=== PATIENT | female | born 2000 | race African-American/Black ===

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

== ENCOUNTER 2021-10-12 18:47 | Inpatient (IN) | payer BC, OTHER ==
[~2021-10-12 18:47] MED LIST: Bupivacaine/Epinephrine 0.25% 30 ML VIAL ONE; ePHEDrine Sulfate 50 MG/10 ML VIAL ONE
[2021-10-12] MEDS ORDERED: HYDROcodone/Acetaminophen 5/325 mg Tablet PO PRN ×2 (19:11)
[2021-10-12] MEDS ORDERED: Ibuprofen 800 MG TAB PO PRN (19:11)
[2021-10-12] MEDS ORDERED: Methylergonovine 0.2 MG/ML VIAL IM PRN (19:11)
[2021-10-12] MEDS ORDERED: Ondansetron PF 4 MG/2 ML Vial IVP PRN (19:11)
[2021-10-12] MEDS ORDERED: Lidocaine 1% (PF) 30 ML VIAL SC PRN (19:11)
[2021-10-12] MEDS ORDERED: Promethazine HCl 25 MG/ML VIAL IM PRN (19:11)
[2021-10-12] MEDS ORDERED: Carboprost 250 MCG/ML AMP IM PRN (19:11)
[2021-10-12] MEDS ORDERED: Acetaminophen 500 MG TAB PO PRN (19:11)
[2021-10-12] MEDS ORDERED: Misoprostol 200 MCG TAB PR PRN (19:11)
[2021-10-12] MEDS ORDERED: Diphenoxylate HCl/Atropine Tablet PO PRN (19:11)
[2021-10-12] MEDS ORDERED: Penicillin G Potassium 5 MILL.UNITS in Sodium Chloride 0.9% 100 ML IVPB SCH (19:15)
[2021-10-12] MEDS ORDERED: NS w/ Oxytocin 30 units 500 ML IV SCH ×2 (19:15)
[2021-10-12] MEDS ORDERED: Calcium Gluc 4.6 MEQ/10 ML (100 MG/ML) SLOW IVP PRN (19:21)
[2021-10-12] MEDS ORDERED: Magnesium Sulfate 20 GM/WATER 500 ML BAG IVPB SCH (19:30)
[2021-10-12] MEDS: hydrALAZINE 20 MG/ML VIAL SLOW IVP PRN ×2 (19:40→20:05)
[2021-10-12 20:05] LABS: Hemoglobin 10.1 g/dL (12.0-15.5); Mean Corpuscular HGB CONC 31.9 g/dL (32.0-36.0); Mean Corpuscular Hemoglobin 25.1 pg (27.0-33.0); Mean Corpuscular Volume 78.7 fl (81.6-98.3); Mean Platelet Volume 11.4 fl (7.4-10.4); Platelet Count 275 10x3/uL (150-450); RBC Distribution Width 14.7 % (11.5-14.5); Red Blood Cell (RBC) Count 4.03 10x6/uL (3.90-5.03); White Blood Cell (WBC) Count 10.5 10x3/uL (3.5-10.5)
[2021-10-12] MEDS: Magnesium Sulfate 20 gm/500 ml 20 GM/500 ML BAG IVPB SCH (20:19)
[2021-10-12 20:26] LABS: ALT (SGPT) 12 U/L (8-55); AST (SGOT) 17 U/L (5-34); Albumin 3.5 g/dL (3.5-5.0); Alkaline Phosphatase 242 U/L (40-100); Anion Gap 16 mmol/L (10-20); BUN (Urea Nitrogen) 6 mg/dL (7.0-18.7); Bilirubin, Total 0.2 mg/dL (0.2-1.2); Calc. Creatinine Clearance 0 mL/min (70-130); Calcium 9.1 mg/dL (7.8-10.44); Carbon Dioxide 20 mmol/L (22-29); Chloride 107 mmol/L (98-107); Globulin 3.3 g/dL (2.4-3.5); Glucose 63 mg/dL (70-105); Protein, Total 6.8 g/dL (6.0-8.3); Sodium 139 mmol/L (136-145); Uric Acid 4.6 mg/dL (2.6-6.0)
[2021-10-12] MEDS ORDERED: Labetalol HCl 100 MG/20 ML VIAL ONE (20:29)
[2021-10-12 20:31] LABS: Hep B Surf Ag Non-Reactive S/CO (NonReactive); Syphilis Antibody Nonreactive (Nonreactive); Syphilis Antibody Index 0.06 S/CO (<1.00 Non-Reactive)
[2021-10-12 20:41] LABS: HBSAg Index 0.17 S/CO (0-0.99)
[2021-10-12] MEDS: Misoprostol 100 MCG TAB VAG SCH (21:18)
[2021-10-12 21:38] VITALS: BMI 28.8
[2021-10-13] MEDS: Misoprostol 100 MCG TAB VAG SCH ×4 (00:40→23:20)
[2021-10-13] MEDS: Magnesium Sulfate 20 gm/500 ml 20 GM/500 ML BAG IVPB SCH ×3 (03:14→22:59)
[2021-10-13] MEDS: Penicillin G 2.5 MILL.units 2.5 MILL.UNITS in Premix Bag 1 BAG IVPB SCH ×5 (03:14→23:21)
[2021-10-13] MEDS: Labetalol HCl 100 MG/20 ML VIAL SLOW IVP PRN ×2 (08:08→13:56)
[2021-10-13] MEDS ORDERED: Iopamidol 370 76% 100 ML VIAL ONE (13:12)
[2021-10-13] MEDS: Butorphanol Tartrate 1 MG/ML VIAL SLOW IVP PRN ×2 (13:50→15:19)
[2021-10-13] MEDS ORDERED: Labetalol HCl 100 MG/20 ML VIAL SLOW IVP SCH ×2 (15:45→16:00)
[2021-10-13] MEDS ORDERED: Fentanyl 2 mcg/Bup 0.1% Cadd 100 ML ONE (16:50)
[2021-10-13] MEDS ORDERED: PHENYLEPHRINE-NS 100 MCG/ML 10 ML SYRINGE ONE (18:02)
[2021-10-13] MEDS ORDERED: Acetaminophen 325 MG TAB PO PRN (18:17)
[2021-10-13] MEDS ORDERED: diphenhydrAMINE 50 MG/ML VIAL IVP PRN (18:17)
[2021-10-13] MEDS ORDERED: Moisturizing Cream (Eucerin) 113 GM JAR TOP PRN ×2 (18:17→21:13)
[2021-10-13] MEDS ORDERED: Naloxone HCl 0.4 mg/ml Vial IVP PRN ×4 (18:17→21:13)
[2021-10-13] MEDS ORDERED: Promethazine HCl 25 MG/ML VIAL IM PRN ×2 (18:17→21:13)
[2021-10-13] MEDS ORDERED: Ondansetron PF 4 MG/2 ML Vial IVP PRN ×2 (18:17→21:13)
[2021-10-13] MEDS ORDERED: Lactated Ringer's 500 ML IV PRN (18:17)
[2021-10-13] MEDS ORDERED: ePHEDrine Sulfate 50 MG/10 ML VIAL SLOW IVP PRN (18:17)
[2021-10-13] MEDS ORDERED: Bicitra 30 ML UDCUP PO PRN (18:24)
[2021-10-13] MEDS ORDERED: Famotidine/PF 20 mg/2ml Vial SLOW IVP PRN (18:24)
[2021-10-13] MEDS ORDERED: Ondansetron PF 4 MG/2 ML Vial ONE (18:27)
[2021-10-13] MEDS ORDERED: Dexamethasone 4 mg/ml Vial ONE (18:27)
[2021-10-13] MEDS ORDERED: Morphine PF 10 MG/10 ML VIAL ONE (18:27)
[2021-10-13] MEDS ORDERED: Misoprostol 200 MCG TAB ONE (18:28)
[2021-10-13] MEDS ORDERED: Oxytocin 10 UNITS/ML VIAL ONE (18:28)
[2021-10-13] MEDS ORDERED: Tranexamic Acid 1,000 MG/10 ML VIAL ONE (18:29)
[2021-10-13] MEDS ORDERED: Carboprost 250 MCG/ML AMP ONE (18:29)
[2021-10-13] MEDS ORDERED: Communication Order-Pharmacy FS SCH ×2 (18:30→21:15)
[2021-10-13] MEDS ORDERED: ceFAZolin 2 GM/Dextrose 50 ML 2 GM in Premix Bag 1 BAG IVPB SCH (18:30)
[2021-10-13] MEDS ORDERED: Azithromycin 500 MG in Sodium Chloride 0.9% 250 ML 250 ML IVPB SCH (18:30)
[2021-10-13] MEDS ORDERED: Fentanyl 2 mcg/Bupivacaine 0.1% Cassette 100 ML EPIDURAL SCH (18:30)
[2021-10-13 18:41] LABS: Magnesium 6.4 mg/dL (1.7-2.2)
[2021-10-13] MEDS ORDERED: Boostrix 0.5 ML (Tdap) VIAL IM ONE (18:59)
[2021-10-13] MEDS ORDERED: Simethicone Chewable 80 MG TAB PO PRN (18:59)
[2021-10-13] MEDS ORDERED: hydrALAZINE 20 MG/ML VIAL SLOW IVP PRN (18:59)
[2021-10-13] MEDS ORDERED: Naloxone HCl 0.4 mg/ml Vial ONE (19:20)
[2021-10-13] MEDS ORDERED: Meperidine HCl/PF 25 MG/ML VIAL SLOW IVP PRN (21:13)
[2021-10-13] MEDS ORDERED: Ketorolac Tromethamine 30 MG/ML VIAL IVP PRN (21:13)
[2021-10-13] MEDS ORDERED: HYDROmorphone 2 MG/ML VIAL SLOW IVP PRN (21:13)
[2021-10-13] MEDS ORDERED: Naloxone HCl 0.4 mg/ml Vial IV PRN (21:13)
[2021-10-13] MEDS ORDERED: Fentanyl 100 MCG/2 ML VIAL SLOW IVP PRN (21:13)
[2021-10-13] MEDS ORDERED: Promethazine HCl 25 MG SUPP PR PRN (21:13)
[2021-10-13] MEDS ORDERED: Ondansetron HCl/PF 4 MG/2 ML Vial IVP PRN (21:13)
[2021-10-13] MEDS ORDERED: Ketorolac Tromethamine 30 MG/ML VIAL IVP SCH (21:15)
[2021-10-13] MEDS ORDERED: Ibuprofen 800 MG TAB PO SCH (22:00)
[2021-10-13] MEDS: CEFAZOLIN 1 GM in Sodium Chloride 0.9% 100 ML IVPB SCH (22:55)
[2021-10-13] MEDS: Lactated Ringer's 1,000 ML IV SCH (22:59)
[2021-10-13] MEDS: Ferrous Sulfate 325 MG TAB PO SCH (23:23)
[2021-10-13] MEDS: Docusate 100 MG CAP PO SCH (23:23)
[2021-10-13] MEDS ORDERED: HYDROmorphone 0.5 MG/0.5 ML SYRINGE SLOW IVP PRN (23:45)
[2021-10-14 04:56] LABS: #Monocytes 0.6 10x3/uL (0.0-1.1); #Neutrophils 13.2 10x3/uL (1.5-8.4); %Basophils 0.1 % (0.0-2.0); %Lymphocytes 4.5 % (18.0-47.0); %Monocytes 4.4 % (0.0-10.0); %Neutrophils 90.5 % (40.0-75.0); Mean Corpuscular HGB CONC 31.1 g/dL (32.0-36.0); Mean Corpuscular Hemoglobin 24.9 pg (27.0-33.0); Mean Corpuscular Volume 80.1 fl (81.6-98.3); Mean Platelet Volume 10.8 fl (7.4-10.4); Platelet Count 283 10x3/uL (150-450); RBC Distribution Width 15.3 % (11.5-14.5); Red Blood Cell (RBC) Count 4.02 10x6/uL (3.90-5.03); White Blood Cell (WBC) Count 14.6 10x3/uL (3.5-10.5)
[2021-10-14] MEDS: Magnesium Sulfate 20 gm/500 ml 20 GM/500 ML BAG IVPB SCH (07:45)
[2021-10-14] MEDS: CEFAZOLIN 1 GM in Sodium Chloride 0.9% 100 ML IVPB SCH (07:45)
[2021-10-14 10:07] LABS: Lactic Acid 1.7 mmol/L (0.5-2.2)
[2021-10-14 10:11] LABS: ALT (SGPT) 20 U/L (8-55); AST (SGOT) 26 U/L (5-34); Albumin 3.3 g/dL (3.5-5.0); Alkaline Phosphatase 221 U/L (40-100); Anion Gap 17 mmol/L (10-20); BUN (Urea Nitrogen) 8 mg/dL (7.0-18.7); Bilirubin, Total 0.2 mg/dL (0.2-1.2); Calc. Creatinine Clearance 134 mL/min (70-130); Carbon Dioxide 22 mmol/L (22-29); Chloride 103 mmol/L (98-107); Globulin 3.7 g/dL (2.4-3.5); Glucose 98 mg/dL (70-105); Magnesium 7.3 mg/dL (1.7-2.2); Potassium 5.4 mmol/L (3.5-5.1); Sodium 137 mmol/L (136-145)
[2021-10-14] MEDS ORDERED: Magnevist 469MG/ML 20 ML VIAL ONE (10:49)
[2021-10-14 11:24] LABS: ALV-art Gradient 8.595 mmHg (0-20); Actual Bicarbonate (HCO3a) 24.1 mEq/L (22-28); Base Excess (BEa) -1.9 mEq/L (-2.0 to +3.0); CO2 Tension 46.1 mmHg (35.0-45.0); Calcium, Ionized (arterial) 1.11 mmol/L (1.12-1.30); Critical Notified Whom: South; Hemoglobin (Hb) 10.6 g/dL (12.0-16.0); O2 Tension (PaO2), arterial 104.9 mmHg (80.0-100.0); Potassium - ABG Lab 5.1 mmol/L (3.70-5.30); Puncture Site LRA; pH, Arterial 7.34 (7.35-7.45)
[2021-10-14] MEDS ORDERED: Dextrose 50% Abboject 50 ML SYRINGE SLOW IVP PRN (13:13)
[2021-10-14 13:23] LABS: Amphetamine Not Detected (NotDetected); Barbiturates Screen Not Detected (NotDetected); Benzodiazepine Screen Not Detected (NotDetected); Cocaine Metabolite Screen Not Detected (NotDetected); Methadone Not Detected (NotDetected); Methamphetamine Not Detected (NotDetected); Opiate Screen Detected (NotDetected); Oxycodone Screen Not Detected (NotDetected); Phencyclidine (PCP) Not Detected (NotDetected); THC/Cannabinoid Screen Not Detected (NotDetected); Tricyclic Screen Not Detected (NotDetected)
[2021-10-14] MEDS ORDERED: Insulin Regular 300 UNITS/3 ML VIAL ONE (15:28)
[2021-10-14] MEDS ORDERED: Insulin Regular 300 UNITS/3 ML VIAL IVP SCH (15:30)
[2021-10-14] MEDS ORDERED: Dextrose 10% in Water 250 ML IV SCH (15:30)
[2021-10-14 16:33] LABS: Potassium 5.1 mmol/L (3.5-5.1)
[2021-10-14] MEDS: Ibuprofen 800 MG TAB PO SCH (22:15)
[2021-10-14] MEDS: Docusate 100 MG CAP PO SCH (22:15)
[2021-10-15] MEDS ORDERED: Acetaminophen 500 MG TAB PO PRN (01:07)
[2021-10-15 04:44] LABS: #Monocytes 1.2 10x3/uL (0.0-1.1); #Neutrophils 11.3 10x3/uL (1.5-8.4); %Basophils 0.1 % (0.0-2.0); %Eosinophils 0.2 % (0.0-6.0); %Lymphocytes 16.9 % (18.0-47.0); %Monocytes 7.6 % (0.0-10.0); %Neutrophils 74.8 % (40.0-75.0); Hemoglobin 8.7 g/dL (12.0-15.5); Mean Corpuscular HGB CONC 31.4 g/dL (32.0-36.0); Mean Corpuscular Hemoglobin 24.9 pg (27.0-33.0); Mean Corpuscular Volume 79.1 fl (81.6-98.3); Mean Platelet Volume 10.9 fl (7.4-10.4); Platelet Count 258 10x3/uL (150-450); RBC Distribution Width 15.6 % (11.5-14.5); White Blood Cell (WBC) Count 15.2 10x3/uL (3.5-10.5)
[2021-10-15 04:54] LABS: Anion Gap 14 mmol/L (10-20); BUN (Urea Nitrogen) 13 mg/dL (7.0-18.7); Calc. Creatinine Clearance 142 mL/min (70-130); Carbon Dioxide 26 mmol/L (22-29); Chloride 104 mmol/L (98-107); Glucose 68 mg/dL (70-105); Sodium 140 mmol/L (136-145)
[2021-10-15] MEDS: Ibuprofen 800 MG TAB PO SCH ×3 (06:32→21:10)
[2021-10-15] MEDS: diphenhydrAMINE 50 MG/ML VIAL IVP PRN ×2 (08:42→11:55)
[2021-10-15] MEDS: Misoprostol 100 MCG TAB VAG SCH ×4 (09:38→10:40)
[2021-10-15] MEDS: Lactated Ringer's 1,000 ML IV SCH ×5 (09:38→10:40)
[2021-10-15] MEDS: CEFAZOLIN 1 GM in Sodium Chloride 0.9% 100 ML IVPB SCH (09:52)
[2021-10-15] MEDS: Prenatal Vitamin 1 TAB PO SCH ×2 (09:52→10:11)
[2021-10-15] MEDS: Ferrous Sulfate 325 MG TAB PO SCH ×3 (09:52→21:10)
[2021-10-15] MEDS: Docusate 100 MG CAP PO SCH ×3 (09:53→21:10)
[2021-10-15] MEDS: Penicillin G 2.5 MILL.units 2.5 MILL.UNITS in Premix Bag 1 BAG IVPB SCH (09:55)
[2021-10-15] MEDS ORDERED: NIFEdipine XL 30 MG TAB PO SCH ×2 (12:00→13:00)
[2021-10-15] MEDS: HYDROcodone/Acetaminophen 5/325 mg Tablet PO PRN (15:10)
[2021-10-16] MEDS: Misoprostol 100 MCG TAB VAG SCH ×4 (01:01→16:49)
[2021-10-16] MEDS: Lactated Ringer's 1,000 ML IV SCH ×2 (04:36→16:49)
[2021-10-16] MEDS: Ibuprofen 800 MG TAB PO SCH ×3 (05:43→22:19)
[2021-10-16] MEDS: Ferrous Sulfate 325 MG TAB PO SCH ×2 (08:41→22:19)
[2021-10-16] MEDS: Prenatal Vitamin 1 TAB PO SCH (08:41)
[2021-10-16] MEDS: Docusate 100 MG CAP PO SCH ×2 (08:41→22:19)
[2021-10-16] MEDS ORDERED: NIFEdipine XL 60 MG TAB PO SCH (09:00)
[2021-10-16] MEDS: HYDROcodone/Acetaminophen 5/325 mg Tablet PO PRN (15:39)
[2021-10-17] MEDS: Lactated Ringer's 1,000 ML IV SCH ×2 (02:21→05:58)
[2021-10-17] MEDS: Misoprostol 100 MCG TAB VAG SCH (02:21)
[2021-10-17 04:57] LABS: #Eosinphils 0.1 10x3/uL (0.0-0.5); #Monocytes 0.9 10x3/uL (0.0-1.1); #Neutrophils 11.1 10x3/uL (1.5-8.4); %Basophils 0.2 % (0.0-2.0); %Lymphocytes 9.3 % (18.0-47.0); %Monocytes 6.6 % (0.0-10.0); %Neutrophils 82.5 % (40.0-75.0); Hemoglobin 9.7 g/dL (12.0-15.5); Mean Corpuscular HGB CONC 31.1 g/dL (32.0-36.0); Mean Corpuscular Hemoglobin 24.6 pg (27.0-33.0); Mean Platelet Volume 10.2 fl (7.4-10.4); Platelet Count 294 10x3/uL (150-450); RBC Distribution Width 15.6 % (11.5-14.5); Red Blood Cell (RBC) Count 3.95 10x6/uL (3.90-5.03); White Blood Cell (WBC) Count 13.4 10x3/uL (3.5-10.5)
[2021-10-17 05:04] LABS: Anion Gap 16 mmol/L (10-20); BUN (Urea Nitrogen) 11 mg/dL (7.0-18.7); Calc. Creatinine Clearance 133 mL/min (70-130); Calcium 9.6 mg/dL (7.8-10.44); Carbon Dioxide 23 mmol/L (22-29); Chloride 106 mmol/L (98-107); Glucose 77 mg/dL (70-105); Potassium 4.7 mmol/L (3.5-5.1); Sodium 140 mmol/L (136-145)
[2021-10-17] MEDS: Ibuprofen 800 MG TAB PO SCH (05:57)
[2021-10-17 06:29] VITALS: TEMP 98.6
[2021-10-17] MEDS ORDERED: NIFEdipine XL 30 MG TAB PO SCH (09:00)
[2021-10-17] MEDS: Prenatal Vitamin 1 TAB PO SCH (09:41)
[2021-10-17] MEDS: Ferrous Sulfate 325 MG TAB PO SCH (09:41)
[2021-10-17] MEDS: Docusate 100 MG CAP PO SCH (09:41)
[2021-10-17 15:17] VITALS: BP 138/95
== END 2021-10-17 16:20 | disposition home or self-care (01) | DRG 786 ==
LOC: CSHLD 18:47 → CSHPP 10-15 09:59
PROVIDERS: ADMIT Obstetrics & Gynecology; ATTEND Obstetrics & Gynecology
PROC: 10D00Z1 Extraction of Products of Conception, Low, Open Approach (ICD-10-PCS; principal; 2021-10-13)
PROC: 3E0P7VZ Introduction of Hormone into Female Reproductive, Via Natural or Artificial Opening (ICD-10-PCS; 2021-10-13)
PROC: 0U7C7ZZ Dilation of Cervix, Via Natural or Artificial Opening (ICD-10-PCS; 2021-10-13)
DX: O14.14 Severe pre-eclampsia complicating childbirth (principal); O41.1230 Chorioamnionitis, third trimester, not applicable or unspecified; G93.40 Encephalopathy, unspecified; O99.355 Diseases of the nervous system complicating the puerperium; D62 Acute posthemorrhagic anemia; Z37.0 Single live birth; Z3A.39 39 weeks gestation of pregnancy; O99.824 Streptococcus B carrier state complicating childbirth; D56.3 Thalassemia minor; O99.02 Anemia complicating childbirth; O99.324 Drug use complicating childbirth; F11.90 Opioid use, unspecified, uncomplicated; O76 Abnormality in fetal heart rate and rhythm complicating labor and delivery; E87.5 Hyperkalemia; O99.285 Endocrine, nutritional and metabolic diseases complicating the puerperium; R94.31 Abnormal electrocardiogram [ECG] [EKG]; O99.893 Other specified diseases and conditions complicating puerperium; I16.0 Hypertensive urgency; R00.0 Tachycardia, unspecified; O69.81X0 Labor and delivery complicated by cord around neck, without compression, not applicable or unspecified; O69.2XX0 Labor and delivery complicated by other cord entanglement, with compression, not applicable or unspecified; D25.2 Subserosal leiomyoma of uterus
CPT/HCPCS: 36415; 36600; 51702; 70496; 70498; 70553; 71045; 74018; 80048; 80053; 80306; 82805; 83605; 83735; 84145; 84550; 85025; 85027; 86780; 86850; 86900; 86901; 87340; 88307; 93005; 93010; 93306; A9579; J0360; J0595; J0610; J0690; J1100; J1200; J1815; J2274; J2310; J2405; J2540; J2590; J3475; J3490; J7120; Q9967; U0003; U0005

== ENCOUNTER 2023-03-31 11:19 | Emergency (ER) | payer BC, OTHER ==
[~2023-03-31 11:19] MED LIST changes: -Bupivacaine/Epinephrine 0.25% 30 ML VIAL ONE; +Iopamidol 300 61% 100 ML VIAL FS ONE; -ePHEDrine Sulfate 50 MG/10 ML VIAL ONE
[2023-03-31] MEDS ORDERED: Acetaminophen 500 MG TAB ONE (12:12)
[2023-03-31] MEDS ORDERED: Ondansetron ODT 4 MG TAB ONE (12:12)
[2023-03-31 12:28] LABS: Bilirubin Neg (Negative); Blood, Urine 10 (Negative); Clarity Clear (Clear); Glucose, Urine (Dipstick) Normal (Negative); Ketone, Urine 5 mg/dL (Negative); Leukocyte Negative (Negative); Nitrite Negative (Negative); Protein, Urine (Dipstick) 15 mg/dl (Neg-Trace); Urobilinogen Normal mg/dL (Less than 2)
[2023-03-31 12:30] LABS: Pregnancy Test - Urine (BHCG) Negative (Negative); Pregu Control Background? CLEAR/WHITE (CLR/WHITE); Pregu Control Bar Appear? YES (CONTROL BAR)
[2023-03-31 12:41] LABS: Bacteria/HPF 1+ HPF (None Seen); CAUTI Indications for Culture Pelvic or flank pain; Mucous/LPF Rare LPF (<2+); RBC/HPF 0-3 HPF (0-3); Squamous Epithelial 0-3 HPF (0-3)
[2023-03-31 12:42] LABS: Urine Culture Reflex No No
[2023-03-31] MEDS ORDERED: Morphine 4 MG/ML VIAL ONE (12:46)
[2023-03-31 12:58] LABS: #Monocytes 1.2 10x3/uL (0.0-1.1); #Neutrophils 12.5 10x3/uL (1.5-8.4); %Basophils 0.2 % (0.0-2.0); %Eosinophils 0.1 % (0.0-6.0); %Lymphocytes 11.2 % (18.0-47.0); %Monocytes 7.8 % (0.0-10.0); %Neutrophils 80.4 % (40.0-75.0); Hematocrit 41.7 % (34.9-44.5); Hemoglobin 13.5 g/dL (12.0-15.5); Mean Corpuscular HGB CONC 32.4 g/dL (32.0-36.0); Mean Corpuscular Volume 80.2 fl (81.6-98.3); Mean Platelet Volume 9.9 fl (7.4-10.4); Platelet Count 287 10x3/uL (150-450); RBC Distribution Width 14.1 % (11.5-14.5); White Blood Cell (WBC) Count 15.5 10x3/uL (3.5-10.5)
[2023-03-31 13:11] LABS: ALT (SGPT) 13 U/L (8-55); AST (SGOT) 18 U/L (5-34); Albumin 4.9 g/dL (3.5-5.0); Alkaline Phosphatase 71 U/L (40-110); Anion Gap 16 mmol/L (10-20); BUN (Urea Nitrogen) 6 mg/dL (7.0-18.7); Calc. Creatinine Clearance 0 mL/min (70-130); Calcium 9.9 mg/dL (7.8-10.44); Carbon Dioxide 22 mmol/L (22-29); Chloride 105 mmol/L (98-107); Estimated GFR 119; Globulin 3.6 g/dL (2.4-3.5); Glucose 115 mg/dL (70-105); Lipase 11 U/L (8-78); Potassium 3.8 mmol/L (3.5-5.1); Protein, Total 8.5 g/dL (6.0-8.3); Sodium 139 mmol/L (136-145)
== END 2023-03-31 15:42 | disposition home or self-care (01) ==
LOC: CSHERS 11:19
DX: N39.0 Urinary tract infection, site not specified (principal); K59.00 Constipation, unspecified; Q61.3 Polycystic kidney, unspecified; N83.201 Unspecified ovarian cyst, right side
CPT/HCPCS: 36415; 74177; 76705; 80053; 81001; 81025; 83690; 85025; 96374; J2270; Q0162; Q9967

== ENCOUNTER 2023-06-19 10:48 | Emergency (ER) | payer BC ==
[2023-06-19] MEDS ORDERED: Ketorolac Tromethamine 30 MG/ML VIAL ONE (11:44)
[2023-06-19 12:10] LABS: Bilirubin Neg (Negative); Blood, Urine 10 (Negative); Clarity Slightly Cloudy (Clear); Glucose, Urine (Dipstick) Normal (Negative); Ketone, Urine 5 mg/dL (Negative); Leukocyte 500 (Negative); Nitrite Negative (Negative); Protein, Urine (Dipstick) 15 mg/dl (Neg-Trace)
[2023-06-19 12:19] LABS: Pregnancy Test - Urine (BHCG) Negative (Negative); Pregu Control Bar Appear? YES (CONTROL BAR)
[2023-06-19 12:20] LABS: Pregu Control Background? CLEAR/WHITE (CLR/WHITE)
[2023-06-19 12:56] LABS: CAUTI Indications for Culture Dysuria,urgency,freq; RBC/HPF 0-3 HPF (0-3)
[2023-06-19 12:58] LABS: Bacteria/HPF 2+ HPF (None Seen); Mucous/LPF 2+ LPF (<2+)
[2023-06-19 13:01] LABS: Trichomonas/HPF 1+ HPF (None Seen)
[2023-06-19 13:03] LABS: Urine Culture Reflex No No
== END 2023-06-19 13:16 | disposition home or self-care (01) ==
LOC: CSHERS 10:48
DX: N39.0 Urinary tract infection, site not specified (principal)
CPT/HCPCS: 81001; 81025; 96372; 99283; J1885

== ENCOUNTER 2024-04-15 05:01 | Emergency (ER) | payer BC ==
[2024-04-15] MEDS ORDERED: Dexamethasone 4 mg/ml Vial ONE (05:33)
[2024-04-15] MEDS ORDERED: Acetaminophen 500 MG TAB ONE (05:40)
[2024-04-15 05:47] LABS: Bilirubin Neg (Negative); Blood, Urine Negative (Negative); Clarity Clear (Clear); Glucose, Urine (Dipstick) Normal (Negative); Ketone, Urine Negative (Negative); Leukocyte 25 (Negative); Nitrite Negative (Negative); Protein, Urine (Dipstick) Negative (Neg-Trace); Urobilinogen Normal mg/dL (Less than 2); pH, Urine 6.5 (5.0-9.0)
[2024-04-15 05:53] LABS: Pregnancy Test - Urine (BHCG) Negative (Negative)
[2024-04-15 05:54] LABS: Pregu Control Background? CLEAR/WHITE (CLR/WHITE); Pregu Control Bar Appear? YES (CONTROL BAR)
[2024-04-15 06:53] LABS: Bacteria/HPF 1+ HPF (None Seen); CAUTI Indications for Culture Pelvic or flank pain; RBC/HPF None Seen HPF (0-3); Squamous Epithelial 0-3 HPF (0-3); WBC/HPF 0-3 HPF (0-3)
[2024-04-15] MEDS ORDERED: HYDROcodone/Acetaminophen 10/325 mg Tablet ONE (06:53)
[2024-04-15 06:55] LABS: Urine Culture Reflex No No
[2024-04-15] MEDS ORDERED: Penicillin V Potassium 250 MG TAB PO SCH (07:15)
[2024-04-16 11:03] LABS: Chlamydia by PCR, Vaginal Swab DETECTED (NotDetected); GC by PCR, Vaginal Swab DETECTED (NotDetected)
== END 2024-04-15 09:10 | disposition home or self-care (01) ==
LOC: CSHERS 05:01
DX: K04.01 Reversible pulpitis (principal); J02.9 Acute pharyngitis, unspecified; F17.290 Nicotine dependence, other tobacco product, uncomplicated
CPT/HCPCS: 81001; 81025; 87081; 87430; 87480; 87491; 87510; 87591; 87660; 99283; J1100

== ENCOUNTER 2024-04-18 13:47 | Emergency (ER) | payer BC ==
[2024-04-18] MEDS ORDERED: cefTRIAXone (ROCEPHIN) 1 GM VIAL ONE (14:23)
== END 2024-04-18 15:30 | disposition home or self-care (01) ==
LOC: CSHERS 13:47
DX: A64 Unspecified sexually transmitted disease (principal); F17.290 Nicotine dependence, other tobacco product, uncomplicated; Z55.0 Illiteracy and low-level literacy
CPT/HCPCS: 96372; 99282; J0696

== ENCOUNTER 2025-02-06 19:23 | Emergency (ER) | payer SELFPAY ==
[2025-02-06] MEDS ORDERED: Ketorolac Tromethamine 30 MG (1 mL) VIAL ONE (19:50)
== END 2025-02-06 20:10 | disposition home or self-care (01) ==
LOC: CSHERS 19:23
DX: L73.9 Follicular disorder, unspecified (principal); F17.290 Nicotine dependence, other tobacco product, uncomplicated
CPT/HCPCS: 96372; 99283; J1885